=== PATIENT | female | born 1945 | race Caucasian/White ===

== ENCOUNTER 2017-01-08 07:22 | Day surgery (SDC) | payer MEDICARE, OTHER ==
[2017-01-03 15:28] VITALS: BMI 22.3
[~2017-01-08 07:22] MED LIST: DEXAMETHASONE SOD PHOSPHATE 10 MG/ML 1 ML VIAL IV ONE; HYDROmorphone 1 MG/ML 1 ML SYRINGE IVP PRN; LACTATED RINGERS 1,000 ML IV SCH; LIDOCAINE 1% 20 ML VIAL (10MG/ML) FOR IV START INTRADERMA PRN; MIDAZOLAM 2 MG/2 ML VIAL IV PRN; MOXIFLOXACIN HCL 0.5% DROPS 3 ML BTL OP ONE; ONDANSETRON 4 MG/2 ML VIAL IVP ONE; SCOPOLAMINE 1.5MG/72HR PATCH TRANSDERM ONE; TETRACAINE 0.5% OPHTH (PF) DROPS 4 ML BTL OP ONE; TIMOLOL 0.5% OPHTH SOLN (PF) 0.2 ML DROPERETTE OP ONE
[2017-01-08] MEDS: CYCLOPENTOLATE 1% OPHTH SOLN 2 ML BTL OP ONE ×3 (08:00→08:38)
[2017-01-08] MEDS: PHENYLEPHRINE 2.5% OPHTH DRP 2ML OP NR ×3 (08:05→08:42)
[2017-01-08 08:12] VITALS: TEMP 97.1
[2017-01-08] MEDS ORDERED: MIDAZOLAM 2 MG/2 ML VIAL ONE (09:25)
[2017-01-08] MEDS ORDERED: EPINEPHrine (PF) 0.3 ML in BALANCED SALT IRRIG SOLN COMB2 500 ML IRRIGATION ONE (09:27)
[2017-01-08] MEDS ORDERED: HYALURONATE SODIUM INTRAOCULAR 1 EACH SYRINGE (12MG/ML) INTRAOCULA ONE ×2 (09:39)
[2017-01-08] MEDS ORDERED: LIDOCAINE 1% (PF) 10MG/ML VIAL MISCELLANE ONE (09:40)
[2017-01-08] MEDS ORDERED: BALANCED SALT IRRIG SOLN COMB2 15 ML IRRIG.SOLN IRRIGATION ONE (09:40)
[2017-01-08 10:24] VITALS: RESP 16
--- NOTE | 2017-01-08 10:24 | P.OP ---
Date of Procedure: 01/08/17 Preoperative Diagnosis: NS & CS & PSC & reg astigmatism, POAG Postoperative Diagnosis: same Procedure(s) Performed: PIOL & iStent imlpantation Implants: BL1UT 25.00 x 2.75 & [id number] Anesthesia: MAC Surgeon: Feliberto Davison Estimated Blood Loss (ml): 0 Pathology: none sent Condition: stable Disposition: same day Indications for Procedure: blurry vision and glaucoma Operative Findings: No complications Description of Procedure:
[2017-01-08 10:43] VITALS: BP 145/71; PULSE 45
--- NOTE | 2017-01-11 14:29 | OP ---
DATE OF SERVICE: 01/08/2017 PROCEDURE: Phacoemulsification of cataract and intraocular lens implant of the right eye with iStent implantation. PREOPERATIVE DIAGNOSES: 1. Primary open angle glaucoma, mild stage. 2. Nuclear sclerosis. 3. Cortical sclerosis. 4. Posterior subcapsular cataract. 5. Regular astigmatism. POSTOPERATIVE DIAGNOSES: 1. Primary open angle glaucoma, mild stage. 2. Nuclear sclerosis. 3. Cortical sclerosis. 4. Posterior subcapsular cataract. 5. Regular astigmatism. SURGEON: Dr. Feliberto Davison. ANESTHESIA: Topical. ESTIMATED BLOOD LOSS: None. SPECIMEN TAKEN: None. NARRATIVE: After obtaining the appropriate consent, the patient was brought to the operating room. There she was asked to sit upright, and the axes of 0 and 180 degrees were marked with a gentian sharif marker on the patient's corneal limbus. She was then placed in the proper supine position under cardiac monitoring, then prepped and draped in the usual sterile manner. She was approached from her right temporal side and, using previously acquired corneal topography information, the axis of 75 degrees was identified and marked with a corneal axis marker. Additionally a 5.5 mm Fay ring lightly inked with gentian sharif was placed centrally over the patient's cornea. At the 11 o' clock position a 1.1 mm stab blade was used to create a paracentesis port. To this opening 1% Xylocaine MPF 50:50 mixed with balanced salt solution was injected into the anterior chamber. This was followed by stabilization of the anterior chamber with Viscoat. At the 9 o'clock position a 2.5 mm keratome was used to create a self-sealing corneal flap incision in a Langermann's fashion. Additional Viscoat was then placed on the patient's eye. Her head was rotated to her left at approximately 45 degrees and she was asked to continue to look in that direction. Once the trabecular meshwork was identified, a Glaukos iStent model [id number] was then placed into the trabecular meshwork without difficulty. It was confirmed in its proper position and the patient was then rotated back into the normal supine position to address the balance of the cataract. At this point a cystotome was used to start a continuous tear capsulorhexis which was completed using the Utrata forceps. Care was taken to ensure the size of the rhexis was at least the size of the Fay ring previously marked on the patient's cornea. Hydrodissection with hydrodelineation of the lens was accomplished with balanced-salt solution. Phacoemulsification of the lens utilizing Phaco-Chop was accomplished in 12.26 seconds at 7% power. Additional Xylocaine MPF was instilled into the anterior chamber. This was followed by removal of the remaining cortex under irrigation and aspiration. Additional Viscoelastic was then used to stabilize the capsular bag. Then using Mamadou and Pepose capsule polishers, additional care was taken to remove anything from under the anterior capsule as well as reasonably possible from within the equator. The temporal incision was enlarged slightly and a Bausch and Lomb Trulign model [id number] diopter x 2.75 diopter posterior chamber intraocular lens was then inserted into the capsular bag without difficulty. The lens was rotated approximately 180 degrees, but there was some difficulty encountered in attempting to rotate it further to align the lens in its proper final resting place. With careful manipulation, it was identified there were a couple of small pieces of cortex which were inhibiting the lens from rotation. These were lysed with a little manipulation, and the lens then freely rotated into its proper position without difficulty. The Viscoelastic was then removed from in and around the intraocular lens as well as the anterior chamber. Final confirmation of the lens's orientation was checked a second time and the eye was brought to normal intraocular pressure to the paracentesis port. ReSure was used to ensure proper closure of the temporal incision. She received 2 drops of 0.5% Timolol followed by 2 drops of Vigamox and she was then lightly patched and shielded in the usual manner. There were no complications from the procedure. She tolerated the procedure well and returned to Outpatient Recovery in good condition. MARYA
== END 2017-01-08 11:11 | disposition home or self-care (01) ==
LOC: OR 07:22
PROVIDERS: ATTEND Ophthalmology
DX: H40.1131 Primary open-angle glaucoma, bilateral, mild stage (principal); H25.011 Cortical age-related cataract, right eye; H25.11 Age-related nuclear cataract, right eye; H25.041 Posterior subcapsular polar age-related cataract, right eye; H52.221 Regular astigmatism, right eye; I10 Essential (primary) hypertension; E78.5 Hyperlipidemia, unspecified; Z79.899 Other long term (current) drug therapy; Z88.8 Allergy status to other drugs, medicaments and biological substances
CPT/HCPCS: 66984; 66183; V2632; V2788; C1783; J2250; J0171; J2001

== ENCOUNTER 2017-02-19 08:17 | Day surgery (SDC) | payer MEDICARE, OTHER ==
[2017-02-12 11:05] VITALS: BMI 22.3
[~2017-02-19 08:17] MED LIST changes: -DEXAMETHASONE SOD PHOSPHATE 10 MG/ML 1 ML VIAL IV ONE; -HYDROmorphone 1 MG/ML 1 ML SYRINGE IVP PRN; -MIDAZOLAM 2 MG/2 ML VIAL IV PRN; -ONDANSETRON 4 MG/2 ML VIAL IVP ONE; -SCOPOLAMINE 1.5MG/72HR PATCH TRANSDERM ONE
[2017-02-19] MEDS: CYCLOPENTOLATE 1% OPHTH SOLN 2 ML BTL OP ONE ×3 (09:22→09:40)
[2017-02-19] MEDS: PHENYLEPHRINE 2.5% OPHTH DRP 2ML OP NR ×3 (09:27→09:47)
[2017-02-19 09:33] VITALS: RESP 16; TEMP 96.8
[2017-02-19] MEDS ORDERED: fentaNYL (PF) 50 MCG/ML 2 ML AMP ONE (10:21)
[2017-02-19] MEDS ORDERED: MIDAZOLAM 2 MG/2 ML VIAL ONE (10:21)
[2017-02-19] MEDS ORDERED: EPINEPHrine (PF) 0.3 ML in BALANCED SALT IRRIG SOLN COMB2 500 ML IRRIGATION ONE (10:26)
[2017-02-19] MEDS ORDERED: DUOVISC KIT (GREEN BOX) INTRAOCULA ONE (10:28)
[2017-02-19] MEDS ORDERED: LIDOCAINE 1% (PF) 10MG/ML VIAL MISCELLANE ONE (10:28)
[2017-02-19] MEDS ORDERED: ATROPINE OPHTH SOLN 1% 5ML BTL LEFT EYE ONE (10:28)
[2017-02-19] MEDS ORDERED: BALANCED SALT IRRIG SOLN COMB2 15 ML IRRIG.SOLN IRRIGATION ONE (10:28)
[2017-02-19] MEDS ORDERED: CHONDROITIN-SOD HYALURONATE 1 EACH SYRINGE (0.75 ML) INTRAOCULA ONE (10:48)
[2017-02-19] MEDS ORDERED: FLUORESCEIN STRIPS 1 MG STRIP LEFT EYE ONE (11:14)
--- NOTE | 2017-02-19 11:24 | P.OP ---
Date of Procedure: 02/19/17 Preoperative Diagnosis: NS & CS & glaucoma moderate stage & Regular astigmatism Postoperative Diagnosis: same Procedure(s) Performed: PIOL, OS & iStent implantation Implants: iStent [id number] & BL1UT [id number] Anesthesia: MAC Surgeon: Feliberto Davison Estimated Blood Loss (ml): 0 Pathology: none sent Condition: stable Disposition: same day Indications for Procedure: blurry vision and glaucoma & correction of astigmatism Operative Findings: No complications Description of Procedure:
[2017-02-19 11:48] VITALS: BP 154/70; PULSE 40
--- NOTE | 2017-02-20 12:11 | OP ---
SURGEON: Feliberot Davison MD IRON LAUNDER OPERATOR: PREOPERATIVE DIAGNOSES: Nuclear sclerosis, cortical sclerosis, posterior subcapsular cataract and primary open angle glaucoma moderate stage and regular astigmatism. POSTOPERATIVE DIAGNOSES: Nuclear sclerosis, cortical sclerosis, posterior subcapsular cataract and primary open angle glaucoma moderate stage and regular astigmatism. OPERATION: Phacoemulsification of cataract and intraocular lens implant to the left eye with eye stent implantation left eye. ANESTHESIA: Topical. ESTIMATED BLOOD LOSS: None. . SPECIMEN TAKEN: None. NARRATIVE: After the patient was brought to the operating room there she was asked to sit upright so that the axes of 0 and 180 degrees were identified and marked with gentian sharif marker. She was then placed in a proper supine position under cardiac monitoring then prepped and draped in the usual sterile manner. She was approached from her left temporal side and using previously acquired corneal topography information the axis of 98 degrees was identified and marked with the corneal axis marker. The center of her cornea was marked with a 5.5 mm Fay ring and a paracentesis was performed at the 5 oclock position a 1.1 mm stab blade. Through this opening, 1% Xylocaine MPF 50:50 mix with balanced salt solution was injected into the anterior chamber. This was followed by stabilization of the anterior chamber with Viscoat. A small dollop of Viscoat was also placed on the patient's cornea. At the 3 oclock position a 2.75 mm saige keratome was used to create a self-sealing corneal flap incision in a Langerman's fashion. The patient was then asked to rotate her head to her right approximately 45 degrees and a Gonio prism was placed on the eye to identify the trabecular mesh work. Once this was identified an ( ) Glaukos eye stent GTS [id number] was passed across the anterior chamber of the eye and embedded within the trabecular mesh work. Confirmation of placement was confirmed using the tip of the viscoelastic cannula. She was then rotated into the normal supine position. A cystatome was used to begin a continuous tear capsulorrhexis which was completed using the Utrata forceps. Care was taken to ensure that the size of the ( ) was at least the size of the 5.5 mm inked florencia on the patient's cornea. Hydrodissection and hydrodelineation of the lens was accomplished with balanced salt solution. Phacoemulsification of the lens utilizing phacochop was accomplished in 8.26 seconds at 7% power. Additional Xylocaine MPF was instilled into the anterior chamber, this was followed by removal of the cortex and irrigation and aspiration along with careful polishing of the posterior capsule in a capsule vacuum mode. Additional Amvisc was placed in the patient's eye and using a Meade and Papoose capsular palauan polisher instruments the entire equator of the capsular bag was cleaned of remaining cortical material. The temporal incision was enlarged slightly with the saige blade and a Bausch and Lomb Trulign model BL1UT 25 diopter 2.75 diopter cylindrical lens was placed into the capsular bag without difficulty. The lens was rotated and manipulated to ensure that there were no residual entanglements of cortical material and the lens was then finally rotated into the general orientation of the planned astigmatism correction. The remaining viscoelastic was then removed from in and around the intraocular lens with irrigation aspiration tip and the eye was brought to normal intraocular pressure through the paracentesis port. Final adjustments of the intraocular lens to assure proper alignment were completed using the tip of the balanced salt solution cannula. The incisions were confirmed water tight with a fluorescein strip followed by placement of ReSure on the wounds to further ensure that the wounds would remain closed at the end of surgery. The patient received two drops of 1% atropine followed by 2 drops of 0.5% timolol and 2 drops of Vigamox. She was then lightly patched and shielded in the usual manner. There were no complications from the procedure. She tolerated the procedure well and was returned to outpatient recovery in good condition. MARYA
== END 2017-02-19 11:55 | disposition home or self-care (01) ==
LOC: OR 08:17
PROVIDERS: ATTEND Ophthalmology
DX: H40.1122 Primary open-angle glaucoma, left eye, moderate stage (principal); H25.042 Posterior subcapsular polar age-related cataract, left eye; H52.222 Regular astigmatism, left eye; I10 Essential (primary) hypertension; Z79.899 Other long term (current) drug therapy; H25.12 Age-related nuclear cataract, left eye
CPT/HCPCS: 66982; 66183; V2632; V2788; C1783; J2250; J0171; J3010; J2001

== ENCOUNTER → 2017-02-21 | Outpatient (CLI) | payer MEDICARE, OTHER ==
--- NOTE | 2017-02-25 07:42 | MM ---
Reason for exam: screening (asymptomatic). Last mammogram was performed 1 year and 1 month ago. History: Patient is postmenopausal. Family history of breast cancer in paternal aunt at age 50. Physical Findings: A clinical breast exam by your physician is recommended on an annual basis and results should be correlated with mammographic findings. MG 3D Screening Mammo W/Cad Bilateral CC and MLO view(s) were taken. Prior study comparison: January 08, 2016, bilateral MG 3d screening mammo w/cad. May 11, 2014, bilateral MG screening mammo w CAD. There are scattered fibroglandular densities. No suspicious abnormality. No significant changes when compared with prior studies. ASSESSMENT: Negative, BI-RAD 1 RECOMMENDATION: Routine screening mammogram of both breasts in 1 year.
== END | disposition home or self-care (01) ==
LOC: RADMAMWWP 10:16
PROVIDERS: ATTEND Family Medicine
DX: Z12.31 Encounter for screening mammogram for malignant neoplasm of breast (principal); Z80.3 Family history of malignant neoplasm of breast
CPT/HCPCS: 77063; G0202

== ENCOUNTER → 2018-03-23 | Outpatient (CLI) | payer MEDICARE, OTHER ==
--- NOTE | 2018-03-24 08:32 | BD ---
EXAMINATION TYPE: Axial Bone Density DATE OF EXAM: 03/23/2018 COMPARISON: NONE CLINICAL HISTORY: Postmenopausal female Height: 5'4 Weight: 125 FRAX RISK QUESTIONS: Secondary Osteoporosis: RISK FACTORS HISTORY OF: Postmenopausal woman: y MEDICATIONS: Additional Medications: blood pressure,cholesterol,pain , restasis Additional History: EXAM MEASUREMENTS: Bone mineral densitometry was performed using the [facility]. Bone mineral density as measured about the Lumbar spine is: ----- L1-L4(G/cm2): 1.102 T Score Values are as follows: ----- L2: -1.3 ----- L3: -0.4 ----- L4: 0.1 ----- L1-L4: -0.6 Bone mineral density about the R hip (g/cm2): 0.866 Bone mineral density about the L hip (g/cm2): 0.828 T Score values are as follows: -----R Neck: -1.2 -----L Neck: -1.5 -----R Total: -0.4 -----L Total: -0.5 IMPRESSION: Osteopenia (T Score between -2.5 and -1). There is slightly increased risk of fracture and the patient may be considered for treatment. Re-Screen 2-5 years. NOTE: T-SCORE=SD OF THE YOUNG ADULT MEAN.
--- NOTE | 2018-03-24 10:09 | MM ---
Reason for exam: screening (asymptomatic). Last mammogram was performed 1 year and 1 month ago. History: Patient is postmenopausal. Family history of breast cancer in paternal aunt at age 50. Physical Findings: A clinical breast exam by your physician is recommended on an annual basis and results should be correlated with mammographic findings. MG 3D Screening Mammo W/Cad Bilateral CC and MLO view(s) were taken. Prior study comparison: February 21, 2017, bilateral MG 3d screening mammo w/cad. January 08, 2016, bilateral MG 3d screening mammo w/cad. There are scattered fibroglandular densities. No significant changes when compared with prior studies. ASSESSMENT: Benign, BI-RAD 2 RECOMMENDATION: Routine screening mammogram of both breasts in 1 year.
== END | disposition home or self-care (01) ==
LOC: RADMAMWWP 15:02
PROVIDERS: ATTEND Family Medicine
DX: Z12.31 Encounter for screening mammogram for malignant neoplasm of breast (principal); M85.80 Other specified disorders of bone density and structure, unspecified site
CPT/HCPCS: 77063; 77067; 77080

== ENCOUNTER → 2020-03-27 | Outpatient (CLI) | payer MEDICARE, OTHER ==
--- NOTE | 2020-03-29 07:42 | MM ---
Reason for exam: screening (asymptomatic). Last mammogram was performed 2 years ago. History: Patient is postmenopausal. Family history of breast cancer in paternal aunt at age 50. Physical Findings: A clinical breast exam by your physician is recommended on an annual basis and results should be correlated with mammographic findings. MG 3D Screening Mammo W/Cad Bilateral CC and MLO view(s) were taken. Prior study comparison: March 23, 2018, bilateral MG 3d screening mammo w/cad. February 21, 2017, bilateral MG 3d screening mammo w/cad. There are scattered fibroglandular densities. No significant changes when compared with prior studies. ASSESSMENT: Negative, BI-RAD 1 RECOMMENDATION: Routine screening mammogram of both breasts in 1 year.
== END | disposition home or self-care (01) ==
LOC: RADMAMWWP 11:31
PROVIDERS: ATTEND Family Medicine
DX: Z12.31 Encounter for screening mammogram for malignant neoplasm of breast (principal)
CPT/HCPCS: 77063; 77067

== ENCOUNTER → 2021-04-09 | Outpatient (CLI) | payer MEDICARE, OTHER ==
--- NOTE | 2021-04-10 09:30 | MM ---
Reason for exam: screening (asymptomatic). Last mammogram was performed 1 year ago. History: Patient is postmenopausal. Family history of breast cancer in paternal aunt at age 50. Physical Findings: A clinical breast exam by your physician is recommended on an annual basis and results should be correlated with mammographic findings. MG 3D Screening Mammo W/Cad Bilateral CC and MLO view(s) were taken. Prior study comparison: March 27, 2020, bilateral MG 3d screening mammo w/cad. There are scattered fibroglandular densities. There is no discrete abnormality. No significant changes when compared with prior studies. ASSESSMENT: Negative, BI-RAD 1 RECOMMENDATION: Routine screening mammogram of both breasts in 1 year.
== END | disposition home or self-care (01) ==
LOC: RADMAMWWP 09:17
PROVIDERS: ATTEND Family Medicine
DX: Z12.31 Encounter for screening mammogram for malignant neoplasm of breast (principal); Z78.0 Asymptomatic menopausal state; Z80.3 Family history of malignant neoplasm of breast
CPT/HCPCS: 77063; 77067

== ENCOUNTER → 2022-04-25 | Outpatient (CLI) | payer MEDICARE, OTHER ==
--- NOTE | 2022-04-25 19:26 | BD ---
EXAMINATION TYPE: Axial Bone Density DATE OF EXAM: 04/25/2022 CLINICAL HISTORY: 76 year old Female. ICD-10 CODE: Z78.[address] Height: 64 Weight: 123.4 FRAX RISK QUESTIONS: Alcohol (3 or more units per day): no Family History (Parent hip fracture): no Glucocorticoids (More than 3mos): no (Ex: prednisone, prednisolone, methylprednisolone, dexamethasone, and hydrocortisone). History of Fracture in Adulthood: no Secondary Osteoporosis: 1. Type 1 Diabetes: no 2. Hyperthyroidism: no 3. Menopause before 45: no 4. Malnutrition: no 5. Chronic liver disease: no Rheumatoid Arthritis: no Current Tobacco Use: no RISK FACTORS HISTORY OF: Surgery to Spine/Hip(right/left)/Wrist (right/left): no Family History of Osteoporosis: no Active: yes Diet low in dairy products/other sources of calcium: no Postmenopausal woman: yes Lost more than 2 inches in height since high school: no MEDICATIONS: Additional History: EXAM MEASUREMENTS: Bone mineral densitometry was performed using the [employer] System. Bone mineral density as measured about the Lumbar spine is: ----- L1-L4(G/cm2): 1.085 T Score Values are as follows: ----- L1: -1.5 ----- L2: -1.2 ----- L3: -0.6 ----- L4: -0.2 ----- L1-L4: -0.8 Bone mineral density has: decreased -1.8 % since study of: 03.23.2018 Bone mineral density about the R hip (g/cm2): 0.850 Bone mineral density about the L hip (g/cm2): 0.839 T Score values are as follows: -----R Neck: -1.4 -----L Neck: -1.4 -----R Total: -0.8 -----L Total: -0.8 Bone mineral density has: decreased -3.6 % since study of: 03.23.2018 FRAX%s: The graph provided illustrates a 9.7% chance for a major osteoporotic fx and a 1.9% chance fo r the hips probability for fx in 10 years time. IMPRESSION: Osteopenia (T Score between -2.5 and -1). There is slightly increased risk of fracture and the patient may be considered for treatment. Re-Screen 2-5 years. NOTE: T-SCORE=SD OF THE YOUNG ADULT MEAN.
--- NOTE | 2022-04-26 15:51 | MM ---
Reason for Exam: Screening (asymptomatic). Last mammogram was performed 1 year(s) and 1 month(s) ago. Patient History: Menarche at age 15. First Full-Term at age 22. Postmenopausal. Patient has history of breast feeding. Paternal aunt had breast cancer, age 50. Risk Values: Aletha 5 year model risk: 1.6%. NCI Lifetime model risk: 3.7%. Prior Study Comparison: 03/23/2018 Bilateral Screening Mammogram, [facility]. 03/27/2020 Bilateral Screening Mammogram, [facility]. 04/09/2021 Bilateral Screening Mammogram, [facility]. Tissue Density: There are scattered fibroglandular densities. Findings: Analyzed By CAD. No suspicious groups of microcalcifications, spiculated or lobular masses, architectural distortion or other secondary signs of malignancy are mammographically apparent. Overall Assessment: Negative, BI-RAD 1 Management: Screening Mammogram of both breasts in 1 year. A negative mammogram report should not preclude additional follow up of suspicious palpable abnormalities. Patient should continue monthly self breast exam. A clinical breast exam by your physician is recommended on an annual basis and results should be correlated with mammographic findings. Electronically signed and approved by: Jb Sotelo D.O. Radiologis
== END | disposition home or self-care (01) ==
LOC: RADMAMWWP 08:16
PROVIDERS: ATTEND Family Medicine
DX: Z12.31 Encounter for screening mammogram for malignant neoplasm of breast (principal); M85.89 Other specified disorders of bone density and structure, multiple sites; Z78.0 Asymptomatic menopausal state; Z80.3 Family history of malignant neoplasm of breast
CPT/HCPCS: 77063; 77067; 77080

== ENCOUNTER → 2023-05-29 | Outpatient (CLI) | payer MEDICARE, OTHER ==
--- NOTE | 2023-06-01 16:36 | MM ---
Reason for Exam: Screening (asymptomatic). Last mammogram was performed 1 year(s) and 1 month(s) ago. Patient History: Menarche at age 15. First Full-Term at age 22. Postmenopausal. Patient has history of breast feeding. Paternal aunt had breast cancer, age 50. Risk Values: Aletha 5 year model risk: 1.6%. NCI Lifetime model risk: 3.4%. Prior Study Comparison: 03/27/2020 Bilateral Screening Mammogram, [facility]. 04/09/2021 Bilateral Screening Mammogram, [facility]. 04/25/2022 Bilateral MG 3D screening mammo w/cad, [facility]. Tissue Density: There are scattered fibroglandular densities. Findings: Analyzed By CAD. There is no suspicious group of microcalcifications or new suspicious mass in either breast. Overall Assessment: Negative, BI-RAD 1 Management: Screening Mammogram of both breasts in 1 year. . Patient should continue monthly self-breast exams. A clinical breast exam by your physician is recommended on an annual basis. This exam should not preclude additional follow-up of suspicious palpable abnormalities. Note on Aletha scores and lifetime risk: 1. A Aletha score greater than 3% is considered moderate risk. If this is the case, consider specialist referral to assess eligibility for a risk reducing agent. 2. If overall lifetime risk for the development of breast cancer is 20% or higher, the patient may qualify for future screening with alternating mammogram and breast MRI. Electronically signed and approved by: Carmel Redmond M.D. Radiologist
== END | disposition home or self-care (01) ==
LOC: RADMAMWWP 13:36
PROVIDERS: ATTEND Family Medicine
DX: Z12.31 Encounter for screening mammogram for malignant neoplasm of breast (principal); Z78.0 Asymptomatic menopausal state; Z80.3 Family history of malignant neoplasm of breast
CPT/HCPCS: 77063; 77067

== ENCOUNTER → 2024-07-13 | Outpatient (CLI) | payer MEDICARE, OTHER ==
--- NOTE | 2024-07-13 13:24 | MM ---
Reason for Exam: Screening (asymptomatic). Last mammogram was performed 1 year(s) and 1 month(s) ago. Patient History: Menarche at age 15. First Full-Term at age 22. Postmenopausal. Patient has history of breast feeding. Paternal aunt had breast cancer, age 50. Risk Values: Aletha 5 year model risk: 1.6%. NCI Lifetime model risk: 3.2%. Prior Study Comparison: 04/09/2021 Bilateral Screening Mammogram, [facility]. 04/25/2022 Bilateral MG 3D screening mammo w/cad, [facility]. 05/29/2023 Bilateral MG 3D screening mammo w/cad, [facility]. Tissue Density: There are scattered areas of fibroglandular density. Findings: Analyzed By CAD. The pattern is symmetrical. Pattern appears symmetrical and stable. No significant interval change is evident. No suspicious groups of microcalcifications, spiculated or lobular masses, architectural distortion or other secondary signs of malignancy are mammographically apparent. Overall Assessment: Negative, BI-RAD 1 Management: Screening Mammogram of both breasts in 1 year. A negative mammogram report should not preclude additional follow up of suspicious palpable abnormalities. Patient should continue monthly self breast exam. A clinical breast exam by your physician is recommended on an annual basis and results should be correlated with mammographic findings. Note on Aletha scores and lifetime risk: 1. A Aletha score greater than 3% is considered moderate risk. If this is the case, consider specialist referral to assess eligibility for a risk reducing agent. 2. If overall lifetime risk for the development of breast cancer is 20% or higher, the patient may qualify for future screening with alternating mammogram and breast MRI. [facility], , 07/13/2024 1:21 PM. Electronically signed and approved by: Jb Sotelo D.O. Radiologis
== END | disposition home or self-care (01) ==
LOC: RADMAMWWP 10:13
PROVIDERS: ATTEND Family Medicine
DX: Z12.31 Encounter for screening mammogram for malignant neoplasm of breast (principal); R92.323 Mammographic fibroglandular density, bilateral breasts; Z78.0 Asymptomatic menopausal state; Z80.3 Family history of malignant neoplasm of breast
CPT/HCPCS: 77063; 77067

== ENCOUNTER → 2024-09-15 | Outpatient (CLI) | payer MEDICARE, OTHER ==
--- NOTE | 2024-09-15 13:35 | CA ---
Exercise Nuclear Stress Test Report Name: Rae Keen Exam Date: 09/15/2024 09:48 Exam Location: [place] Stress Ht (in): 64 Wt (lb): 120 BSA: 1.57 Ordering Phys: Shilpa Khan DO Referring Phys: Margie Gil PAC Technologist: Nelson Mckinney Age: 78 Gender: F : 1945 Procedure CPT: Indications: R00.1 BRADYCARDIA R94.31 ABN CARDIOVASC STUDY RESU ICD-10 Codes: Patient History: Medications: SEE LIST Meds past 24 hrs: Pretest Chest Pain: STRESS TEST Carlos Protocol Exercise Duration (min:sec): 09:[address] Depressions (mm): Angina Score: Lee Score: Resting HR (bpm): 58 Peak HR (bpm): 146 Resting BP (mmHg): 152 / 87 Peak BP (mmHg): 205 / 80 MPHR: 144 Target HR: 122 % MPHR: 101 METS: 11.1 Total Dose: Peak Dose: Atropine: Double Product: 64878 BP Response: Stress Termination: MAX EXERTION/TARGET HR Stress Symptoms: NO SYMPTOMS Stress Summary: The patient's target heart rate was achieved, The hemodynamic response to exercise was normal ECG ANALYSIS Resting ECG: Sinus rhythm. Normal conduction. No arrhythmias. Nonspecific ST-T abnormality. Stress ECG: No ECG evidence of ischemia with exercise. CONCLUSIONS 1. Good exercise tolerance 2. Nondiagnostic electrocardiographic stress testing secondary baseline EKG abnormality 3. Nuclear images will be reported separately Dr. Kelley Singh MD (Electronically Signed) Final Date: 15 September 2024 13:35
--- NOTE | 2024-09-15 16:10 | NM ---
EXAMINATION TYPE: NM stress cardiolite complete DATE OF EXAM: 09/15/2024 COMPARISON: NONE CLINICAL INDICATION: Female, 78 years old with history of R00.1 BRADYCARDIA R94.31 ABN CARDIOVASC DIPAK DY RESU; chest pressure and hypertension. TECHNIQUE: After the intravenous administration of 10.5 mCi Tc 99m Sestamibi - Rest images obtained 45 minutes post injection. The patient exercised using a DAMIAN protocol and 1 minute prior to peak exercise was injected with 23.1 mCi Tc 99m Sestamibi - Stress images obtained 5 minutes post injectio n. FINDINGS: Targeted heart rate (122 BPM) was achieved during performance of the study (144 BPM achieved). Review of stress and rest SPECT images demonstrates no distinct perfusion abnormality. Gated analysis show s normal wall motion with an estimated left ventricular ejection fraction of 70 %. TID measured uppe r limits of normal at 1.11. IMPRESSION: No scintigraphic evidence for reversible ischemia [facility], , 09/15/2024 4:07 PM
== END | disposition home or self-care (01) ==
LOC: RADNMMAIN 07:51
PROVIDERS: ATTEND Family Medicine
DX: R00.1 Bradycardia, unspecified (principal); R94.30 Abnormal result of cardiovascular function study, unspecified; R07.89 Other chest pain
CPT/HCPCS: 93017; 78452; A9500

== ENCOUNTER → 2024-11-11 | Outpatient (CLI) | payer MEDICARE, OTHER ==
[2024-11-11 16:13] LABS: ALT 20 U/L (8-44); AST 26 U/L (13-35); Albumin 4.2 g/dL (3.8-4.9); Albumin/Globulin Ratio 1.91 Ratio (1.60-3.17); Alkaline Phosphatase 90 U/L (41-126); BUN/Creat Ratio 21.11 Ratio (12.00-20.00); Calcium 9.7 mg/dL (8.7-10.3); Chloride 107 mmol/L (96-109); Chol/HDL Ratio 1.96 Ratio; Globulin 2.2 g/dL (1.6-3.3); Glucose 95 mg/dL (70-110); LDL Cholesterol,Calculated 78.7 mg/dL (0.0-131.0); Potassium 4.4 mmol/L (3.5-5.5); Sodium 141 mmol/L (135-145); Total Bilirubin 0.5 mg/dL (0.3-1.2); Total Protein 6.4 g/dL (6.2-8.2); VLDL Calculation 10.32 mg/dL (5.00-40.00)
== END | disposition home or self-care (01) ==
LOC: LABWHC1 07:57
PROVIDERS: ATTEND Internal Medicine Clinical Cardiac Electrophysiology
DX: R00.1 Bradycardia, unspecified (principal); I10 Essential (primary) hypertension; E78.5 Hyperlipidemia, unspecified
CPT/HCPCS: 36415; 80053; 80061; 83036; 84443